=== PATIENT | female | born 1945 | race Asian ===

== ENCOUNTER 2022-09-01 14:40 | Inpatient (IN) | payer OTHER ==
[~2022-09-01] VITALS: Ht 157.5 cm; Wt 39.5 kg
[2022-09-01] MEDS ORDERED: IV NS 0.9% 500 ML BAG IV ONE (15:00)
--- NOTE | 2022-09-01 15:00 | NUR ---
[id number] C/O HYPOTENTION, BP 100/39 POST DIALYSIS. PLACED IN BED, AWAKE- NONVERBAL, BREATHING EVEN AND UNLABORED SATURATING 98%RA, BP- 93/45. MD AT BEDSIDE FOR EVAL.
[2022-09-01] MEDS ORDERED: DORZ10DR18 EACHEYE (15:14)
[2022-09-01] MEDS ORDERED: APIX2.5T PO (15:14)
[2022-09-01] MEDS ORDERED: FOLI0.8T23 PO (15:14)
[2022-09-01] MEDS ORDERED: NIFE60TA73 PO (15:14)
[2022-09-01] MEDS ORDERED: LOSA50TA39 PO (15:14)
[2022-09-01] MEDS ORDERED: ACET-868 PO (15:14)
[2022-09-01] MEDS ORDERED: PANT40TA49 PO (15:14)
[2022-09-01] MEDS ORDERED: ATOR10TA PO (15:14)
[2022-09-01] MEDS ORDERED: ANAS1TAB50 PO (15:14)
[2022-09-01] MEDS ORDERED: HYDR-4077 PO (15:14)
[2022-09-01] MEDS ORDERED: BISA10SU11 RC (15:14)
[2022-09-01] MEDS ORDERED: AMIN30LI2 PO (15:14)
[2022-09-01] MEDS ORDERED: ACET-2605 PO ×2 (15:14)
[2022-09-01] MEDS ORDERED: FOLI0.4T6 PO (15:14)
[2022-09-01] MEDS ORDERED: TYL2T PO (15:14)
[2022-09-01] MEDS ORDERED: MAGN400O6 PO (15:14)
[2022-09-01] MEDS ORDERED: LEVO100T9 PO (15:14)
[2022-09-01] MEDS ORDERED: SEVE0.8P3 PO (15:14)
[2022-09-01] MEDS ORDERED: LATA2.5D15 EACHEYE (15:14)
[2022-09-01] MEDS ORDERED: MINO2.5T PO (15:14)
--- NOTE | 2022-09-01 15:50 | NUR ---
MUSIC VIDEO DIRECTOR AT BEDSIDE
--- NOTE | 2022-09-01 15:52 | NUR ---
SWAB FOR COVID19 SENT TO LAB
[2022-09-01 16:26] LABS: BASOPHILS % (AUTO) 0.2 % (0.0-2.0); EOSINOPHILS % (AUTO) 0.6 % (0.0-6.0); HEMATOCRIT 36 % (33-45); HEMOGLOBIN 11.3 g/dL (11.5-14.8); LYMPHOCYTES # (AUTO) 0.4 K/uL (0.8-4.8); LYMPHOCYTES % (AUTO) 3.6 % (20.0-44.0); MEAN CORPUSCULAR HGB CONC 32 g/dl (31.0-36.0); MEAN CORPUSCULAR VOLUME 98 fL (82-100); MONOCYTES # (AUTO) 1.1 K/uL (0.1-1.30); NEUTROPHILS # (AUTO) 10.7 K/uL (1.8-8.9); NEUTROPHILS % (AUTO) 86.6 % (43.0-81.0); PLATELET COUNT (AUTO) 326 K/uL (150-450); RED BLOOD CELL COUNT(AUTO) 3.62 MIL/uL (4.0-5.2); WHITE BLOOD COUNT (AUTO) 12.3 K/uL (4.3-11.0)
[2022-09-01 16:45] LABS: CALCIUM, SERUM 8.6 mg/dL (8.5-10.1); CARBON DIOXIDE 28 mmol/L (21-32); CHLORIDE 97 mmol/L (98-107); CREATININE 2.8 mg/dL (0.6-1.3); GLUCOSE 143 mg/dL (74-106); POTASSIUM 3.8 mmol/L (3.5-5.1); SODIUM SERUM 132 mmol/L (136-145); UREA NITROGEN, BLOOD 29 mg/dL (7-18)
[2022-09-01 16:46] LABS: ALANINE AMINOTRANSFERASE 14 U/L (12-78); ALBUMIN 1.8 g/dL (3.4-5.0); ALKALINE PHOSPHATASE 228 U/L (46-116); ASPARTATE AMINOTRANSFERASE 36 U/L (15-37); BILIRUBIN,DIRECT 0.2 mg/dL (0.0-0.2); BILIRUBIN,TOTAL 0.5 mg/dL (0.2-1.0); TOTAL PROTEIN, SERUM 7.1 g/dL (6.4-8.2)
[2022-09-01] MEDS ORDERED: IV NS 0.9% 1,000 ML BAG IV ONE (17:30)
[2022-09-01] MEDS ORDERED: VANCOMYCIN 1 GM in IV D5W 250 ML IV ONE (17:30)
[2022-09-01] MEDS ORDERED: CEFEPIME 1 GM in IV D5W 50 ML IV ONE (17:30)
--- NOTE | 2022-09-01 18:08 | NUR ---
TROPONIN LEVEL 55 PER LAB. MADE AWARE.
--- NOTE | 2022-09-01 18:55 | NUR ---
IN AND OUT CATH. FOR URINE SAMPLE- NO URINE OUTPUT.
--- NOTE | 2022-09-01 19:37 | NUR ---
EPIC PAGED PER DR WILLIS
[2022-09-01] MEDS ORDERED: ONDANSETRON HCL/PF 4 MG/2 ML VIAL IVP PRN (20:00)
[2022-09-01] MEDS ORDERED: ACETAMINOPHEN 325 MG TABLET PO PRN (20:00)
--- NOTE | 2022-09-01 21:03 | NUR ---
BED 111-1
--- NOTE | 2022-09-01 21:19 | NUR ---
REPORT GIVEN TO ARLIN MARTIN ROOM 111-1 FOR SOL
--- NOTE | 2022-09-01 22:30 | NUR ---
VOLUNTEER MANAGER OPENING NOTES: RECEIVED PATIENT VIA GURNEY FROM ER, PLACED IN BED COMFORTABLY, BED IN LOW POSITION CALL LIGHTS WITHIN REACH, NO COMPLAIN OF PAIN AND DISCOMFORT AT THIS TIME, ON ROOM AIR SATURATING WELL, PATIENT ON TELE [id number] NO SOB WAS OBSERVED, SKIN ASSESSMENT DONE PICTURED AND DOCUMENTED, INVENTORIES DONE, DOCUMENTED, IV LINE AT RAC#20SL, WITH HD PORT AT RIGHT CHEST PERMACATH, NO BLEEDING WAS OBSERVED, PATIENT KEPT CLEAN AND DRY PLACE COMFORTABLY IN BED, ALL NEEDS MET WILL CONTINUE TO MONITOR.
[2022-09-02] VITALS: BP 137/62
[2022-09-02] MEDS ORDERED: MAGNESIUM HYDROXIDE 30 ML UDC PO PRN (01:30)
[2022-09-02] MEDS ORDERED: ACETAMINOPHEN 325 MG TABLET PO PRN (01:30)
[2022-09-02] MEDS ORDERED: BISACODYL SUPP (10 MG) 10 MG/SUPP.RECT SUPP.RECT RC PRN (01:30)
[2022-09-02 04:00] VITALS: BP 96/43
--- NOTE | 2022-09-02 06:11 | NUR ---
NUCLEAR PHYSICIAN CLOSING NOTES: PATIENT SLEEP IN BED COMFORTABLY, AROUSABLE TO VERBAL STIMULI, BED IN LOW POSITION CALL LIGHTS WITHIN REACH, NO COMPLAIN OF PAIN AND DISCOMFORT AT THIS TIME, ON ROOM AIR SATURATING WELL, NO SOB WAS OBSERVED, PATIENT ON TELE MONITOR- SR-85, KEPT CLEAN AND DRY ALL NEEDS MET WILL CONTINUE TO MONITOR.
[2022-09-02] MEDS ORDERED: VANCOMYCIN 500 MG in IV D5W 100 ML IV PRN (07:00)
[2022-09-02 07:25] LABS: BASOPHILS % (AUTO) 0.3 % (0.0-2.0); EOSINOPHILS % (AUTO) 1.5 % (0.0-6.0); HEMATOCRIT 30 % (33-45); HEMOGLOBIN 10.1 g/dL (11.5-14.8); LYMPHOCYTES # (AUTO) 0.4 K/uL (0.8-4.8); LYMPHOCYTES % (AUTO) 3.5 % (20.0-44.0); MEAN CORPUSCULAR HGB CONC 34 g/dl (31.0-36.0); MEAN CORPUSCULAR VOLUME 98 fL (82-100); MONOCYTES # (AUTO) 0.9 K/uL (0.1-1.30); MONOCYTES % (AUTO) 8.5 % (2.0-12.0); NEUTROPHILS # (AUTO) 8.9 K/uL (1.8-8.9); NEUTROPHILS % (AUTO) 86.2 % (43.0-81.0); PLATELET COUNT (AUTO) 315 K/uL (150-450); RED BLOOD CELL COUNT(AUTO) 3.07 MIL/uL (4.0-5.2); WHITE BLOOD COUNT (AUTO) 10.3 K/uL (4.3-11.0)
--- NOTE | 2022-09-02 07:45 | NUR ---
ALEX RN NOTES: PATIENT SLEEP IN BED COMFORTABLY, ABUSABLE TO VERBAL STIMULI,AND TACITLY BED IN LOW POSITION CALL LIGHTS WITHIN REACH, NO COMPLAIN OF PAIN AND DISCOMFORT AT THIS TIME, ON ROOM AIR , NO SOB WAS OBSERVED, PATIENT ON TELE MONITOR- SR-84, KEPT CLEAN AND DRY ALL NEEDS MET ,WILL CONTINUE TO MONITOR., RT AC HL INTACT AND FLUSHED WELL BED IN LOWEST AND LOCKED POSITION, SAFETY MEASURE IN PLACE
[2022-09-02 07:47] LABS: THYROID STIMULATING HORMONE 29.247 uIU/mL (0.358-3.74)
[2022-09-02] MEDS: LEVOTHYROXINE SODIUM 100 MCG TABLET PO SCH (08:07)
[2022-09-02] MEDS: PANTOPRAZOLE 40 MG TABLET.DR PO SCH (08:08)
[2022-09-02 08:31] LABS: ALANINE AMINOTRANSFERASE 9 U/L (12-78); ALBUMIN 1.7 g/dL (3.4-5.0); ALKALINE PHOSPHATASE 176 U/L (46-116); ASPARTATE AMINOTRANSFERASE 30 U/L (15-37); BILIRUBIN,TOTAL 0.5 mg/dL (0.2-1.0); CALCIUM, SERUM 8.6 mg/dL (8.5-10.1); CARBON DIOXIDE 24 mmol/L (21-32); CHLORIDE 97 mmol/L (98-107); CREATININE 3.3 mg/dL (0.6-1.3); GLUCOSE 107 mg/dL (74-106); MAGNESIUM 2.5 mg/dL (1.8-2.4); PHOSPHORUS 3.6 mg/dL (2.5-4.9); POTASSIUM 4.3 mmol/L (3.5-5.1); SODIUM SERUM 131 mmol/L (136-145); TOTAL PROTEIN, SERUM 6.7 g/dL (6.4-8.2); UREA NITROGEN, BLOOD 36 mg/dL (7-18)
[2022-09-02 08:34] VITALS: BP 106/53
[2022-09-02] MEDS: PROSOURCE / PROSTAT (PYXIS) 30 ML UDC PO SCH ×2 (08:58→16:37)
[2022-09-02] MEDS: DORZOLAMIDE OPTH 2% 10 ML BOTTLE EACHEYE SCH ×4 (08:59→21:23)
[2022-09-02] MEDS ORDERED: MINOXIDIL (2.5MG) 2.5 MG TABLET PO SCH (09:00)
[2022-09-02] MEDS ORDERED: PANTOPRAZOLE 40 MG VIAL IV SCH (09:00)
[2022-09-02] MEDS: VIT B CMPLX 3/FA/VIT C/BIOTIN 1 TAB TABLET PO SCH (09:00)
[2022-09-02] MEDS: SEVELAMER CARBONATE 800 MG POWD.PACK PO SCH ×3 (09:00→16:37)
[2022-09-02] MEDS ORDERED: HEPARIN SODIUM, PORCINE 5000 UNITS/1 ML VIAL SQ SCH (09:00)
[2022-09-02] MEDS: APIXABAN 2.5 MG TABLET PO SCH ×2 (09:02→16:38)
[2022-09-02] MEDS: FOLIC ACID 1 MG TABLET PO SCH (09:02)
--- NOTE | 2022-09-02 09:18 | NUR ---
PUBLIC WORKS MANAGER NOTE PATIENT ATB RISK FOR ASPIRATION, PER RAVI RN BRIM SHAPER OK SWALLOW EVAL, ORDER CARRIED OUT
[2022-09-02] MEDS: ANASTROZOLE 1 MG TABLET PO SCH (09:42)
[2022-09-02] MEDS: ACETAMINOPHEN ES 500 MG TABLET PO PRN (10:18)
--- NOTE | 2022-09-02 10:28 | NUR ---
WOUND CARE CONSULT: PT PRESENTS WITH LEFT LOWER BACK AND SACRAL UNSTAGEABLE PRESSURE ULCERS WELL LOWER EXTREMITY DRY WOUNDS, PRESENT ON ADMISSION. DR FRYE AND DR HURLEY CALLED FOR SURGICAL AND DPM CONSULTS. DISCUSSED SKIN PROTECTION WITH NURSING STAFF. MD IN AGREEMENT WITH PLAN OF CARE.
[2022-09-02] MEDS: THERAHONEY GEL 1.5 OZ TUBE TP SCH (10:30)
--- NOTE | 2022-09-02 10:31 | NUR ---
teletype installer note Tylenol po given as ordered for pain on body .will monitor
--- NOTE | 2022-09-02 10:32 | NUR ---
patricia rn note seen by sobia wound care nurse Tylenol po given for given general pain
[2022-09-02 12:00] VITALS: BP 106/52
--- NOTE | 2022-09-02 13:00 | NUR ---
television announcer note seen by dr Shah. updated patient condition
--- NOTE | 2022-09-02 14:36 | NUR ---
josselyn leonardo st at bedside for swallow eval Addendum: 09/02/22 at 1437 by RONEL MONTOYA RN per dr shelton olmedo
--- NOTE | 2022-09-02 15:54 | NUR ---
RN NOTE BILATERAL HEEL DRESSING CHANGED. NO PAIN OR DISCOMFORT REPORTED BY PT. Addendum: 09/02/22 at 1642 by RONEL MONTOYA RN SEEN BY FOOT DOCTOR STATED THAT WILL PLACE ORDER TX , WILL F\U
[2022-09-02 16:00] VITALS: BP 122/56
[2022-09-02] MEDS: CEFEPIME 1 GM in IV D5W 50 ML IV SCH (17:10)
--- NOTE | 2022-09-02 18:35 | NUR ---
CHEMICAL UNIT OPERATOR CLOSING NOTES: PATIENT SLEEP IN BED COMFORTABLY, AROUSABLE TO VERBAL STIMULI, ALL PO MEDICATION GIVEN IN CRASHED/ MIXED WITH APPLE SAUCE, CHOCKING PRECAUTIONS IMPLEMENTED. BED IN LOW POSITION CALL LIGHTS WITHIN REACH, NO COMPLAIN OF PAIN AND DISCOMFORT AT THIS TIME, SATURATION 100% ON ROOM AIR, NO SOB WAS OBSERVED, PATIENT ON TELE MONITOR- SR-88, KEPT CLEAN AND DRY ALL NEEDS MET WILL CONTINUE TO MONITOR.
--- NOTE | 2022-09-02 19:32 | NUR ---
INSOLE REINFORCER OPENING NOTES; RECEIVED PATIENT IN BED SLEEPING BUT AROUSABLE TO VERBAL STIMULI,KARLIE WELL ON RM AIR SATTING 98%,NO SIGN SOB/DISTRESS NOTED,NO SIGN OF PAIN/DISCOMFORT AT THIS TIME,IV ACCESS ON RAC 20G SL,PATENT AND INTACT,SAFETY MEASURE IN PLACE.CALL LIGHT WITHIN REACH,WILL CONTINUE TO MONITOR.
[2022-09-02] MEDS: ATORVASTATIN 10 MG TABLET PO SCH (21:23)
[2022-09-02] MEDS: LATANOPROST EYE DROP 0.005% 2.5 ML BOTTLE EACHEYE SCH (21:27)
--- NOTE | 2022-09-02 21:32 | NUR ---
RN NOTES; TRUSOP 2% SOLN OPH,WAS NOT GIVEN, MISTAKE WHEN I SCAN.
[2022-09-02] MEDS ORDERED: SILVER NITRATE APPLICATOR 1 EA BOX TP SCH (22:00)
[2022-09-02] MEDS ORDERED: LIDOCAINE 1%-EPI 1:100,000 20 ML VIAL TP ONE (22:00)
--- NOTE | 2022-09-03 05:24 | NUR ---
PUBLIC MESSAGE SERVICE SUPERVISOR CLOSING NOTES; PATIENT IN BED SLEEPING BUT AROUSABLE TO VERBAL STIMULI,KARLIE WELL ON RM AIR SATTING 97.6%,NO SIGN SOB/DISTRESS NOTED,NO SIGN OF PAIN/DISCOMFORT DURING SHIFT,DUE MEDS GIVEN ORDER,ALL NEEDS ATTENDED,IV ACCESS ON RAC 20G SL,PATENT AND INTACT,SAFETY MEASURE IN PLACE.CALL LIGHT WITHIN REACH,WILL ENDORSED TO NEXT SHIFT.
[2022-09-03 06:20] LABS: BASOPHILS % (AUTO) 0.3 % (0.0-2.0); EOSINOPHILS % (AUTO) 1.2 % (0.0-6.0); HEMATOCRIT 32 % (33-45); HEMOGLOBIN 10.5 g/dL (11.5-14.8); LYMPHOCYTES # (AUTO) 0.4 K/uL (0.8-4.8); LYMPHOCYTES % (AUTO) 5.1 % (20.0-44.0); MEAN CORPUSCULAR HGB CONC 33 g/dl (31.0-36.0); MEAN CORPUSCULAR VOLUME 98 fL (82-100); MONOCYTES # (AUTO) 0.7 K/uL (0.1-1.30); MONOCYTES % (AUTO) 8.8 % (2.0-12.0); NEUTROPHILS # (AUTO) 7.2 K/uL (1.8-8.9); NEUTROPHILS % (AUTO) 84.6 % (43.0-81.0); PLATELET COUNT (AUTO) 330 K/uL (150-450); RED BLOOD CELL COUNT(AUTO) 3.28 MIL/uL (4.0-5.2); WHITE BLOOD COUNT (AUTO) 8.5 K/uL (4.3-11.0)
--- NOTE | 2022-09-03 07:10 | NUR ---
ALEX RN NOTES: PATIENT SLEEP IN BED COMFORTABLY, ABUSABLE TO VERBAL STIMULI,AND TACITLY BED IN LOW POSITION CALL LIGHTS WITHIN REACH, NO COMPLAIN OF PAIN AND DISCOMFORT AT THIS TIME, ON ROOM AIR , NO SOB WAS OBSERVED, NOTED WITH RIGHT CHEST HD CATH.KEPT CLEAN AND DRY ALL NEEDS MET ,WILL CONTINUE TO MONITOR., RT AC SALINE LOCK INTACT AND FLUSHED WELL BED IN LOWEST AND LOCKED POSITION, SAFETY MEASURE IN PLACE
[2022-09-03 07:22] LABS: ALANINE AMINOTRANSFERASE 14 U/L (12-78); ALBUMIN 1.8 g/dL (3.4-5.0); ALKALINE PHOSPHATASE 171 U/L (46-116); ASPARTATE AMINOTRANSFERASE 26 U/L (15-37); BILIRUBIN,TOTAL 0.6 mg/dL (0.2-1.0); CALCIUM, SERUM 10.6 mg/dL (8.5-10.1); CARBON DIOXIDE 24 mmol/L (21-32); CHLORIDE 108 mmol/L (98-107); CREATININE 2.5 mg/dL (0.6-1.3); GLUCOSE 82 mg/dL (74-106); MAGNESIUM 2.5 mg/dL (1.8-2.4); PHOSPHORUS 3.1 mg/dL (2.5-4.9); POTASSIUM 4.1 mmol/L (3.5-5.1); SODIUM SERUM 140 mmol/L (136-145); TOTAL PROTEIN, SERUM 7.3 g/dL (6.4-8.2); UREA NITROGEN, BLOOD 21 mg/dL (7-18)
[2022-09-03] MEDS: PANTOPRAZOLE 40 MG TABLET.DR PO SCH (07:36)
[2022-09-03] MEDS: LEVOTHYROXINE SODIUM 100 MCG TABLET PO SCH (07:36)
[2022-09-03 08:00] VITALS: BP 142/53
[2022-09-03] MEDS: ACETAMINOPHEN ES 500 MG TABLET PO PRN ×2 (08:19→16:50)
[2022-09-03] MEDS: SEVELAMER CARBONATE 800 MG POWD.PACK PO SCH ×3 (08:19→16:33)
[2022-09-03] MEDS: FOLIC ACID 1 MG TABLET PO SCH (08:19)
[2022-09-03] MEDS: VIT B CMPLX 3/FA/VIT C/BIOTIN 1 TAB TABLET PO SCH (08:19)
[2022-09-03] MEDS: APIXABAN 2.5 MG TABLET PO SCH ×2 (08:21→16:31)
[2022-09-03] MEDS: ANASTROZOLE 1 MG TABLET PO SCH (08:27)
[2022-09-03] MEDS: PROSOURCE / PROSTAT (PYXIS) 30 ML UDC PO SCH ×3 (08:27→16:36)
[2022-09-03] MEDS: THERAHONEY GEL 1.5 OZ TUBE TP SCH (08:30)
[2022-09-03] MEDS: NEPRO VAN 237 ML CAN PO SCH ×2 (12:37→16:32)
[2022-09-03] MEDS: DORZOLAMIDE OPTH 2% 10 ML BOTTLE EACHEYE SCH ×2 (13:05→16:32)
[2022-09-03 16:00] VITALS: BP 102/36
--- NOTE | 2022-09-03 16:00 | NUR ---
RN NOTES: PT DONE DIALYSIS WITHOUT COMPLICATION, 2 LITER OUT, WILL MONITOR
[2022-09-03] MEDS: CEFEPIME 1 GM in IV D5W 50 ML IV SCH (17:13)
[2022-09-03] MEDS: VANCOMYCIN 500 MG in IV NS 0.9% 100 ML IV PRN (18:49)
--- NOTE | 2022-09-03 19:30 | NUR ---
MS1 RN NOTES RECEIVED LAYING ON BED,ON RIGHT SIDE POSITION,A/O X1,MOANS ALL THE TIME PER REPORT,NON VERBAL. AT BEDSIDE.S/P HD TODAY 2L OUT.SALINE LOCK RIGHT AC INTACT AND PATENT.WITH RIGHT UPPER CHEST CATH FOR HD TREATMENT.WITH SACRAL WOUND S/P INCISION AND DRAINAGE TODAY,DRESSING INTACT AND DRY.WILL REPOSITION PER PROTOCOL,CALL LIGHT IN REACH,NEEDS ANTICIPATED.
--- NOTE | 2022-09-03 19:37 | NUR ---
RETAIL COORDINATOR CLOSING NOTES: PATIENT SLEEP IN BED COMFORTABLY, AROUSABLE TO VERBAL STIMULI, ALL PO MEDICATION GIVEN IN CRASHED/ MIXED WITH APPLE SAUCE, ASPIRATION PRECAUTIONS IMPLEMENTED. BED IN LOW POSITION CALL LIGHTS WITHIN REACH, NO COMPLAIN OF PAIN AND DISCOMFORT AT THIS TIME, SATURATION 100% ON ROOM AIR, NO SOB WAS OBSERVED, PT DID NOT EAT WITH NURSES BUT WAS ABLE TO FEED PT LUNCH AND DINNER SHE ATE IT ALL., KEPT CLEAN AND DRY ALL NEEDS MET .ENDORSED TO SNAILER RN FOR SOL
[2022-09-03] MEDS: LATANOPROST EYE DROP 0.005% 2.5 ML BOTTLE EACHEYE SCH (21:51)
[2022-09-03] MEDS: ATORVASTATIN 10 MG TABLET PO SCH (21:51)
[2022-09-04] MEDS: ACETAMINOPHEN ES 500 MG TABLET PO PRN (01:20)
--- NOTE | 2022-09-04 01:20 | NUR ---
MS1 RN NOTES MOANS A LOT,IN PAIN WITH FACIAL GRIMACE NOTED,TYLENOL ES 500MG,1 TAB CRUSHED AND GIVEN PO ORDERED.NEGATIVE FOR ASPIRATION.
[2022-09-04 04:00] VITALS: BP 140/56
--- NOTE | 2022-09-04 06:32 | NUR ---
MS RN NOTES ON BED,SLEPT WITH INTERVALS,MOANS INTERMITTENTLY,MANAGE WITH TYLENOL ES 500MG PO.REPOSITION PER PROTOCOL,DUE MEDS ADMINISTERED CRUSHED WITH THICKENER,TAKEN WELL.NO ASPIRATION NOTED.AFEBRILE.IN NO ACUTE DISTRESS.
[2022-09-04 06:51] LABS: BASOPHILS % (AUTO) 0.2 % (0.0-2.0); HEMATOCRIT 33 % (33-45); HEMOGLOBIN 10.5 g/dL (11.5-14.8); LYMPHOCYTES # (AUTO) 0.6 K/uL (0.8-4.8); MEAN CORPUSCULAR HGB CONC 32 g/dl (31.0-36.0); MEAN CORPUSCULAR VOLUME 98 fL (82-100); MONOCYTES # (AUTO) 1.3 K/uL (0.1-1.30); MONOCYTES % (AUTO) 10.5 % (2.0-12.0); NEUTROPHILS # (AUTO) 10.1 K/uL (1.8-8.9); NEUTROPHILS % (AUTO) 83.3 % (43.0-81.0); PLATELET COUNT (AUTO) 311 K/uL (150-450); RED BLOOD CELL COUNT(AUTO) 3.33 MIL/uL (4.0-5.2); WHITE BLOOD COUNT (AUTO) 12.2 K/uL (4.3-11.0)
--- NOTE | 2022-09-04 07:10 | NUR ---
HARDBOARD COATING MACHINE OPERATOR OPENING NOTES Recicved pt awake in bed. Responsive when spoken to in Tagalog. Pt moans but when asked if there is any pain or discomfort no complaints of pain or discomfort at this time. Respirations are equal and unlabored with no SOB. Pt is in RA and tolerating it well. IV Heplock running TKO. HOB elevated to 30-45 degrees. Siderails up at all times. Call light within reach,. Will anticipate needs.
[2022-09-04 07:53] LABS: ALANINE AMINOTRANSFERASE 13 U/L (12-78); ALBUMIN 1.8 g/dL (3.4-5.0); ALKALINE PHOSPHATASE 212 U/L (46-116); ASPARTATE AMINOTRANSFERASE 29 U/L (15-37); BILIRUBIN,TOTAL 0.6 mg/dL (0.2-1.0); CALCIUM, SERUM 9.2 mg/dL (8.5-10.1); CARBON DIOXIDE 25 mmol/L (21-32); CHLORIDE 98 mmol/L (98-107); CREATININE 2.6 mg/dL (0.6-1.3); GLUCOSE 82 mg/dL (74-106); MAGNESIUM 2.3 mg/dL (1.8-2.4); PHOSPHORUS 1.9 mg/dL (2.5-4.9); POTASSIUM 4.2 mmol/L (3.5-5.1); SODIUM SERUM 131 mmol/L (136-145); TOTAL PROTEIN, SERUM 7.3 g/dL (6.4-8.2); UREA NITROGEN, BLOOD 38 mg/dL (7-18)
[2022-09-04] MEDS: PANTOPRAZOLE 40 MG TABLET.DR PO SCH (08:24)
[2022-09-04] MEDS: VIT B CMPLX 3/FA/VIT C/BIOTIN 1 TAB TABLET PO SCH (08:24)
[2022-09-04] MEDS: FOLIC ACID 1 MG TABLET PO SCH (08:25)
[2022-09-04] MEDS: LEVOTHYROXINE SODIUM 100 MCG TABLET PO SCH (08:25)
[2022-09-04] MEDS: APIXABAN 2.5 MG TABLET PO SCH ×2 (08:26→17:00)
[2022-09-04] MEDS: ANASTROZOLE 1 MG TABLET PO SCH (08:30)
[2022-09-04] MEDS: SEVELAMER CARBONATE 800 MG POWD.PACK PO SCH ×3 (08:30→17:00)
[2022-09-04] MEDS: NEPRO VAN 237 ML CAN PO SCH ×3 (08:31→17:00)
[2022-09-04] MEDS: PROSOURCE / PROSTAT (PYXIS) 30 ML UDC PO SCH ×2 (08:32→17:00)
[2022-09-04] MEDS: DORZOLAMIDE OPTH 2% 10 ML BOTTLE EACHEYE SCH ×3 (09:33→17:00)
[2022-09-04] MEDS: THERAHONEY GEL 1.5 OZ TUBE TP SCH (09:33)
[2022-09-04] MEDS: DAKINS QUARTER STRENGTH (0.125%) 480 ML BOTTLE TOP SCH (09:34)
--- NOTE | 2022-09-04 11:47 | NUR ---
VICE PRESIDENT RISK MANAGEMENT NOTES Dr. Shah made aware that pt phos is 1.9 with new order for neutro phos 2 packet x1 now. Noted and carried out,.
[2022-09-04 12:00] VITALS: BP 152/66
[2022-09-04] MEDS ORDERED: NEUTRA PHOS 1 POWD.PACKET PO ONE (12:00)
--- NOTE | 2022-09-04 17:00 | NUR ---
MEDICAL RECORD CLERK NOTES Routine meds held due at 1700 pt on HD.
--- NOTE | 2022-09-04 17:22 | NUR ---
LMFT NOTES PT STARTED ON HD.
--- NOTE | 2022-09-04 18:30 | NUR ---
CARE SERVICES MANAGER CLOSING NOTES Pt is still currently on HD and tolerating it well. No signs of pain or discomfort at this time. Respirations are equal and unlabored with no SOB. Pt is on RA and tolerating it well. IV access on RAC patent and intact. HOB elevated to 30-45 degrees. Siderails up at all times. Call light within reach. Will endorse to oncoming shift.
--- NOTE | 2022-09-04 18:57 | NUR ---
LEGAL ADMINISTRATOR NOTES Pts Jayson at bedside and discussed taht suggests PEG tub placement due to poor oral intake. Jayson stated he agrees to the PEG tube and would like it. made aware. Awaiting response.
--- NOTE | 2022-09-04 19:05 | NUR ---
RN NOTES: RECEIVED AWAKE ON BED, HIGH FOWLERS POSITION, PRESENT AT BED SIDE, DIALYSIS IS ON GOING VIA PORT A CATH ON THE RIGHT CHEST WALL, DRESSING IS DRY AND INTACT, A/O TO SELF ONLY, KYRGYZ SPEAKING, RESPOND YES OR NO, RARELY COMMUNICATE VERBALLY,ON ROOM AIR, SPO2-97%,NON LABORED BREATHING, NO SOB, EDEMA ON BUE AND BLE, SHE HAS SACRAL REDNESS PER ENDORSEMENT, FOR LABS IN THE MORNING,REENA ML INTACT. FOR POSSIBLE EGD WITH PEG INSERTION, STILL AWAITING FOR CONFIRMATION, TO OBTAIN CONSENT. ADDED NOTES: PER MORNING ENDORSEMENT HE IS FOR PEG INSERTION TOMORROW AT 11AM,TO GET CONSENT FROM .
[2022-09-04 20:00] VITALS: BP 156/70
--- NOTE | 2022-09-04 20:28 | NUR ---
RN NOTES: AROUND 1933 DONNA-DIALYSIS NURSE REQUEST TO PULL OUT NS FROM [facility] TO USE FOR PATIENT DIALYSIS-TAKEN BY RN FROM [facility] AND GIVEN TO DIALYSIS NURSE. Addendum: 09/04/22 at 2028 by CHRISTOPHER BURGESS RN ADDED NOTES: RN NOTES: 1936PM DIALYSIS COMPLETED, OUTPUT-2 LITERS NOAH-150/70 ME-94 PATIENT IS STABLE DUE FOR ANOTHER SESSION TOMORROW THURSDAY.
[2022-09-04] MEDS: CEFEPIME 1 GM in IV D5W 50 ML IV SCH (20:34)
--- NOTE | 2022-09-04 20:35 | NUR ---
RN NOTES: PER ENDORSEMENT OF MORNING SHIFT TO GIVE MAXIPINE DOSE AFTER DIALYSIS COMPLETED, GIVEN AT 2034.
--- NOTE | 2022-09-04 21:58 | NUR ---
RN NOTES: AT 2118-SHE IS SCHEDULE FOR EGD WITH PEG INSERTION UNDER DR. VALVERDE TOMORROW AT 1100, NPO AT 12 MN. - IS AWARE OF THE PROCEDURE TO BE DONE TOMORROW, EXPLAINED TO HIM BY 2 RN, CONSENT SIGNED FOR ESOPHAGOGASTRODUODENOSCOPY WITH PERCUTANEOUS ENDOSCOPIC GASTROSTOMY PLACEMENT, HE AGREE, CONSENT SIGNED, BT SIGNED AND ANESTHESIA SIGNED.
[2022-09-04] MEDS: LATANOPROST EYE DROP 0.005% 2.5 ML BOTTLE EACHEYE SCH (22:03)
[2022-09-04] MEDS: ATORVASTATIN 10 MG TABLET PO SCH (22:03)
--- NOTE | 2022-09-05 02:10 | NUR ---
RN NOTES: AWAKE, ASSISTED TO BED SIDE KARTHIK JMIENEZ VERY LITTLE, IVF ONGOING, REMOVE SOFT RESTRAINT IN BETWEEN, COOPERATIVE TO CARE, NOT PULLING OUT HER IV CANNULA. Addendum: 09/05/22 at 0213 by CHRISTOPHER BURGESS RN ADDED NOTES: WRONG ENTRY OF NOTES THIS IS FOR 104
--- NOTE | 2022-09-05 02:17 | NUR ---
RN NOTES: -MORNING CARE DONE.SPONGE BATH RENDERED BODY ASSESSMENT DONE: DRESSING RIGHT FOOT, LEFT FOOT AND SACRUM DONE, PICTURES TAKEN
[2022-09-05] MEDS: ACETAMINOPHEN 325 MG TABLET PO PRN ×2 (03:46→21:29)
--- NOTE | 2022-09-05 03:46 | NUR ---
RN NOTES: AFTER MORNING CARE, NOTED WITH FACIAL GRIMACE DURING REPOSITIONING, OFF LOADING DONE, PRN FOR PAIN GIVEN TEMP-100.5. Addendum: 09/05/22 at 0542 by CHRISTOPHER BURGESS RN ADDED NOTES: NEW IV LINE INSERTED ON THE LEFT WRIST G#22, IVF ON KVO
[2022-09-05 04:00] VITALS: BP 100/76
--- NOTE | 2022-09-05 06:22 | NUR ---
RN NOTES: SWEATING, TEMP-98, BS CHECKED-157, ON NPO, CONSENT FOR PEG TUBE READY, PRE-OP CHECKLIST STARTED, FOR SERIAL DEBRIDEMENT OF SACRUM AREA,LABS DONE IN THE MORNING, AWAKE MAKING COOING SOUND, OFF LOADING DONE, REPOSITIONED, NON LABORED BREATHING. ENDORSED FOR CONTINUITY OF CARE.
[2022-09-05 07:18] LABS: BASOPHILS % (AUTO) 0.3 % (0.0-2.0); EOSINOPHILS % (AUTO) 0.6 % (0.0-6.0); HEMATOCRIT 36 % (33-45); HEMOGLOBIN 11.6 g/dL (11.5-14.8); LYMPHOCYTES # (AUTO) 0.9 K/uL (0.8-4.8); LYMPHOCYTES % (AUTO) 4.9 % (20.0-44.0); MEAN CORPUSCULAR HGB CONC 32 g/dl (31.0-36.0); MEAN CORPUSCULAR VOLUME 100 fL (82-100); MONOCYTES # (AUTO) 1.8 K/uL (0.1-1.30); NEUTROPHILS # (AUTO) 15.1 K/uL (1.8-8.9); NEUTROPHILS % (AUTO) 84.2 % (43.0-81.0); PLATELET COUNT (AUTO) 287 K/uL (150-450); RED BLOOD CELL COUNT(AUTO) 3.66 MIL/uL (4.0-5.2); WHITE BLOOD COUNT (AUTO) 17.9 K/uL (4.3-11.0)
--- NOTE | 2022-09-05 07:21 | NUR ---
RN OPENING NOTES Received pt awake in bed. Responsive when spoken to in Tagalog. Pt moans but when asked if there is any pain or discomfort no complaints of pain or discomfort at this time. Respirations are equal and unlabored with no SOB. Pt is in RA and tolerating it well. PIV ON RIGHT FA AND LEFT WRIST NOTED PATENT AND INTACT. RIGHT UPPER CHEST HD CATH DRESSING NOTED C/D/I. HOB elevated to 30-45 degrees. ON NPO STATUS. Siderails up at all times. Call light within reach. SAFETY PRECAUTION IN PLACED. PLAN OF CARE CONTINUE.
[2022-09-05] MEDS: LEVOTHYROXINE SODIUM 100 MCG TABLET PO SCH ×2 (07:30→07:51)
[2022-09-05] MEDS: PANTOPRAZOLE 40 MG TABLET.DR PO SCH ×2 (07:30→07:51)
[2022-09-05] MEDS: NEPRO VAN 237 ML CAN PO SCH ×4 (07:52→16:09)
[2022-09-05] MEDS: APIXABAN 2.5 MG TABLET PO SCH ×2 (08:05→16:09)
[2022-09-05] MEDS: DORZOLAMIDE OPTH 2% 10 ML BOTTLE EACHEYE SCH ×3 (08:05→16:09)
[2022-09-05] MEDS: THERAHONEY GEL 1.5 OZ TUBE TP SCH (08:05)
[2022-09-05] MEDS: DAKINS QUARTER STRENGTH (0.125%) 480 ML BOTTLE TOP SCH (08:05)
[2022-09-05] MEDS: FOLIC ACID 1 MG TABLET PO SCH (08:20)
[2022-09-05] MEDS: SEVELAMER CARBONATE 800 MG POWD.PACK PO SCH ×3 (08:20→16:16)
[2022-09-05] MEDS: ANASTROZOLE 1 MG TABLET PO SCH (08:20)
[2022-09-05] MEDS: PROSOURCE / PROSTAT (PYXIS) 30 ML UDC PO SCH ×2 (08:20→16:09)
[2022-09-05] MEDS: VIT B CMPLX 3/FA/VIT C/BIOTIN 1 TAB TABLET PO SCH (08:20)
[2022-09-05 08:32] LABS: CALCIUM, SERUM 10.3 mg/dL (8.5-10.1); CARBON DIOXIDE 24 mmol/L (21-32); CHLORIDE 95 mmol/L (98-107); CREATININE 2.5 mg/dL (0.6-1.3); GLUCOSE 160 mg/dL (74-106); MAGNESIUM 2.6 mg/dL (1.8-2.4); PHOSPHORUS 1.4 mg/dL (2.5-4.9); POTASSIUM 4.6 mmol/L (3.5-5.1); SODIUM SERUM 129 mmol/L (136-145); UREA NITROGEN, BLOOD 38 mg/dL (7-18)
--- NOTE | 2022-09-05 11:00 | NUR ---
NOTED SODIUM 129, PHOSPHATE 1.4 AND MAGNESIUM 2.6, DR. SUAREZ NOTIFIED, WITH NEW ORDER NS @100ML/HR, SODIUM PHOSPHATE, CALLED PHARMACY FOR SODIUM PHOSPHATE CONCENTRATION, NOTED AND CARRIED OUT. PLAN OF CARE CONTINUE.
--- NOTE | 2022-09-05 11:15 | NUR ---
CALLED OR DEPARTMENT, SPOKE TO ASAEL RN TO FOLLOW UP PATIENT'S SURGERY TIME, PER ASAEL THEY WERE INFORMED BY DR. VALVERDE THAT SURGERY IS CANCELLED, DR. JENNINGS NOTIFY, AT THE BEDSIDE. ASKED DR. JENNINGS IF WE CAN RESUME PO INTAKE. AWAITING ORDERS. PLAN OF CARE CONTINUE.
[2022-09-05 12:00] VITALS: BP 109/55
[2022-09-05] MEDS ORDERED: IV NS 0.9% 1,000 ML IV ONE (12:00)
--- NOTE | 2022-09-05 12:17 | NUR ---
RECEIVED ORDER FOR DR. JENNINGS THAT PATIENT CAN RESUME PO INTAKE. NOTED AND CARRIED OUT.
[2022-09-05] MEDS ORDERED: Sodium Phosphate 30 MMOL in IV NS 0.9% 250 ML IV SCH (14:00)
--- NOTE | 2022-09-05 14:25 | NUR ---
RECEIVED NEW ORDER FROM DR. JENNINGS TO HOLD ELIQUIS DUE TO PATIENT IS FOR PEG TUBE PLACEMENT, NOTED AND CARRIED OUT. HELD MORNING ELIQUIS. WILL ENDORSE TO NEXT SHIFT RN. PLAN OF CARE CONTINUE.
[2022-09-05 16:52] VITALS: BP 120/52
[2022-09-05] MEDS: CEFEPIME 1 GM in IV D5W 50 ML IV SCH (17:28)
--- NOTE | 2022-09-05 18:09 | NUR ---
RN CLOSING NOTES PATIENT IN BED AWAKE, AT THE BEDSIDE, Responsive when spoken to in Tagalog. Pt moans but when asked if there is any pain or discomfort no complaints of pain or discomfort at this time. Respirations are equal and unlabored with no SOB. Pt is in RA and tolerating it well. PIV ON RIGHT AC AND LEFT WRIST NOTED PATENT AND INTACT, FLUSHES WELL, WITH IV NS @100ML RUNNING AND SODIUM PHOSPHATE RUNNING, TOLERATING WELL. RIGHT UPPER CHEST HD CATH DRESSING NOTED C/D/I. HOB elevated to 30-45 degrees. PER EKTA DIALYSIS NURSE, THEY WILL DO THE HEMODIALYIS LATER. Siderails up at all times. Call light within reach. SAFETY PRECAUTION IN PLACED. WILL ENDORSE TO NIGHT NURSE FOR SOL.
--- NOTE | 2022-09-05 19:30 | NUR ---
MS RN NOTES RECEIVED RESIDENT IN BED, AWAKE AND RESPONSIVE TO TACTILE STIMULI, NOT VERBALLY RESPONSIVE. PT ON RA, NOT IN ACUTE DISTRESS. NO SOB. NO S/S OF PAIN NOTED. IVF SODIUM PHOSPHATE INFUSING 43.33ML/HR ON LFA 22G, NS INFUSING 100ML/HR ON RAC 18G. NO S/S OF INFILTRATION NOTED. R CHEST WALL HEMOCATH INTACT, SITE IS CLEAN AND DRY. WOUND DRESSING ON B HEEL AND SACRUM I/C/D. HEELS FLOATED ON PILLOWS. TURN AND REPOS, KEPT DRY AND CLEAN. SR UP, CALL LIGHT WITHIN REACH, BED LOCKED AND IN LOWEST POSITION. WILL CONT TO MONITOR. VS STABLE.
[2022-09-05 20:00] VITALS: BP 120/52
--- NOTE | 2022-09-05 20:57 | NUR ---
MS RN NOTE SODIUM PHOSPHATE INFUSION COMPLETED. NO S/S OF INFILTRATION. IVF NS INFUSING 100ML/HR. WELL KARLIE
--- NOTE | 2022-09-05 21:20 | NUR ---
MS RN NOTES PT NOTED WITH 99.3 LOW GRADE FEVER. COOLING MEASURES APPLIED, PRN ACETAMINOPHEN GIVEN ORDERED. WILL REASS PT.
[2022-09-05] MEDS: ATORVASTATIN 10 MG TABLET PO SCH (21:29)
[2022-09-05] MEDS: LATANOPROST EYE DROP 0.005% 2.5 ML BOTTLE EACHEYE SCH (21:31)
--- NOTE | 2022-09-05 22:00 | NUR ---
MS RN NOTE DIALYSIS STARTED. VS STABLE. WILL CONT TO MONITOR PT.
[2022-09-06 04:00] VITALS: BP 135/52
[2022-09-06 05:50] LABS: BASOPHILS % (AUTO) 0.2 % (0.0-2.0); EOSINOPHILS % (AUTO) 1.9 % (0.0-6.0); HEMATOCRIT 34 % (33-45); LYMPHOCYTES # (AUTO) 0.6 K/uL (0.8-4.8); LYMPHOCYTES % (AUTO) 4.8 % (20.0-44.0); MEAN CORPUSCULAR HGB CONC 32 g/dl (31.0-36.0); MEAN CORPUSCULAR VOLUME 99 fL (82-100); MONOCYTES # (AUTO) 1.2 K/uL (0.1-1.30); MONOCYTES % (AUTO) 9.9 % (2.0-12.0); NEUTROPHILS # (AUTO) 10.4 K/uL (1.8-8.9); NEUTROPHILS % (AUTO) 83.2 % (43.0-81.0); PLATELET COUNT (AUTO) 306 K/uL (150-450); RED BLOOD CELL COUNT(AUTO) 3.46 MIL/uL (4.0-5.2); WHITE BLOOD COUNT (AUTO) 12.5 K/uL (4.3-11.0)
[2022-09-06 06:03] LABS: ALANINE AMINOTRANSFERASE 7 U/L (12-78); ALBUMIN 1.7 g/dL (3.4-5.0); ALKALINE PHOSPHATASE 229 U/L (46-116); ASPARTATE AMINOTRANSFERASE 17 U/L (15-37); BILIRUBIN,TOTAL 0.4 mg/dL (0.2-1.0); CALCIUM, SERUM 9.2 mg/dL (8.5-10.1); CARBON DIOXIDE 24 mmol/L (21-32); CHLORIDE 103 mmol/L (98-107); CREATININE 2.1 mg/dL (0.6-1.3); GLUCOSE 123 mg/dL (74-106); MAGNESIUM 2.3 mg/dL (1.8-2.4); PHOSPHORUS 3.2 mg/dL (2.5-4.9); SODIUM SERUM 135 mmol/L (136-145); TOTAL PROTEIN, SERUM 7.2 g/dL (6.4-8.2); UREA NITROGEN, BLOOD 27 mg/dL (7-18)
--- NOTE | 2022-09-06 06:18 | NUR ---
MS RN CLOSING NOTES PT IN BED, ASLEEP, EASILY AWAKEN. NO S/S OF PAIN/DISCOMFORT NOTED. ON RA, NO SOB, NO ACUTE DISTRESS NOTED. LFA #22 AND RAC #18 INTACT, DRY AND PATENT. R CHEST HEMO CATH CLEAN AND DRY. ALL NEEDS ANTICIPATED AND MET. TURN/REPOS PT Q2H/ NEEDED. KEPT PT CLEAN AND DRY AT ALL TIMES. SAFETY MEASURES IMPLEMENTED: BED LOCKED AND IN LOWEST POSITION. WILL ENDORSE TO AM NURSE.
--- NOTE | 2022-09-06 07:20 | NUR ---
ms rn received on bed, awake,alert,oriented x1-2, no distress noted, respiratins even and unlabored,no sob noted, lungs are clear,abdomen soft,positive bowel sounds,denies pain at this time, will monitor patient's condition, all needs attended.
[2022-09-06] MEDS: APIXABAN 2.5 MG TABLET PO SCH ×2 (08:33→16:41)
[2022-09-06] MEDS: SEVELAMER CARBONATE 800 MG POWD.PACK PO SCH ×3 (08:38→17:35)
[2022-09-06] MEDS: FOLIC ACID 1 MG TABLET PO SCH (08:39)
[2022-09-06] MEDS: PANTOPRAZOLE 40 MG TABLET.DR PO SCH (08:39)
[2022-09-06] MEDS: VIT B CMPLX 3/FA/VIT C/BIOTIN 1 TAB TABLET PO SCH (08:39)
[2022-09-06] MEDS: ANASTROZOLE 1 MG TABLET PO SCH (08:39)
[2022-09-06] MEDS: LEVOTHYROXINE SODIUM 100 MCG TABLET PO SCH (08:39)
[2022-09-06] MEDS: DORZOLAMIDE OPTH 2% 10 ML BOTTLE EACHEYE SCH ×3 (08:42→18:36)
[2022-09-06] MEDS: THERAHONEY GEL 1.5 OZ TUBE TP SCH (08:43)
[2022-09-06] MEDS: NEPRO VAN 237 ML CAN PO SCH ×3 (08:45→18:36)
[2022-09-06] MEDS: PROSOURCE / PROSTAT (PYXIS) 30 ML UDC PO SCH ×2 (08:45→17:35)
--- NOTE | 2022-09-06 08:50 | NUR ---
ms katz breakfast served,due meds given,tolerated well.
[2022-09-06] MEDS: DAKINS QUARTER STRENGTH (0.125%) 480 ML BOTTLE TOP SCH (08:57)
--- NOTE | 2022-09-06 11:00 | NUR ---
ms rn am care done by seat cover installer, dressing to sacrum change, patient on bed, no distress noted.
[2022-09-06 12:00] VITALS: BP 145/60
[2022-09-06] MEDS: CEFEPIME 1 GM in IV D5W 50 ML IV SCH (17:35)
--- NOTE | 2022-09-06 19:30 | NUR ---
PT IN BED, ASLEEP, WITH RELATIVE AT BEDSIDE. EASILY AWAKEN. NO S/S OF PAIN/DISCOMFORT NOTED. ON RA, NO SOB AT THIS TIME. NO ACUTE DISTRESS NOTED. LFA #22 AND RAC #18, R CHEST HEMO CATH IN PLACE. SAFETY MEASURES IN PLACE. WILL CONTINUE PLAN OF CARE.
[2022-09-06 20:00] VITALS: BP 158/65
[2022-09-06] MEDS: ACETAMINOPHEN ES 500 MG TABLET PO PRN (20:19)
--- NOTE | 2022-09-06 20:27 | NUR ---
BP 158/65. HD ONGOING. CRUSHED TYLENOL ES 1000MG PO GIVEN. PT TOLERATING PROCEDURE WELL. PROVIDED 2 0.9 NS 1L REQUESTED BY HD NURSE. WILL CONTINUE TO MONITOR.
[2022-09-06] MEDS: LATANOPROST EYE DROP 0.005% 2.5 ML BOTTLE EACHEYE SCH (21:10)
[2022-09-06] MEDS: ATORVASTATIN 10 MG TABLET PO SCH (21:10)
--- NOTE | 2022-09-06 21:55 | NUR ---
HD PERFORMED WITH 1L OUTPUT. TOLERATED WELL. BP 126/58.
[2022-09-07 04:00] VITALS: BP 167/65
--- NOTE | 2022-09-07 04:26 | NUR ---
BP 167/65. Charge nurse and MD notified. Awaiting orders.
[2022-09-07] MEDS: ACETAMINOPHEN ES 500 MG TABLET PO PRN ×2 (04:39→21:08)
--- NOTE | 2022-09-07 05:50 | NUR ---
BP 175/70. CHARGE NURSE AND MD NOTIFIED. AWAITING ORDERS.
[2022-09-07 06:19] LABS: BASOPHILS % (AUTO) 0.2 % (0.0-2.0); EOSINOPHILS % (AUTO) 3.2 % (0.0-6.0); HEMATOCRIT 35 % (33-45); HEMOGLOBIN 11.4 g/dL (11.5-14.8); LYMPHOCYTES # (AUTO) 0.7 K/uL (0.8-4.8); LYMPHOCYTES % (AUTO) 6.3 % (20.0-44.0); MEAN CORPUSCULAR HGB CONC 33 g/dl (31.0-36.0); MEAN CORPUSCULAR VOLUME 99 fL (82-100); MONOCYTES # (AUTO) 1.3 K/uL (0.1-1.30); MONOCYTES % (AUTO) 11.9 % (2.0-12.0); NEUTROPHILS # (AUTO) 8.3 K/uL (1.8-8.9); NEUTROPHILS % (AUTO) 78.4 % (43.0-81.0); PLATELET COUNT (AUTO) 345 K/uL (150-450); RED BLOOD CELL COUNT(AUTO) 3.51 MIL/uL (4.0-5.2); WHITE BLOOD COUNT (AUTO) 10.6 K/uL (4.3-11.0)
[2022-09-07 06:36] LABS: ALANINE AMINOTRANSFERASE 11 U/L (12-78); ALBUMIN 1.8 g/dL (3.4-5.0); ALKALINE PHOSPHATASE 265 U/L (46-116); ASPARTATE AMINOTRANSFERASE 26 U/L (15-37); BILIRUBIN,TOTAL 0.4 mg/dL (0.2-1.0); CALCIUM, SERUM 9.4 mg/dL (8.5-10.1); CARBON DIOXIDE 22 mmol/L (21-32); CHLORIDE 107 mmol/L (98-107); CREATININE 2.1 mg/dL (0.6-1.3); GLUCOSE 119 mg/dL (74-106); MAGNESIUM 2.5 mg/dL (1.8-2.4); PHOSPHORUS 2.7 mg/dL (2.5-4.9); POTASSIUM 4.6 mmol/L (3.5-5.1); SODIUM SERUM 139 mmol/L (136-145); TOTAL PROTEIN, SERUM 7.4 g/dL (6.4-8.2); UREA NITROGEN, BLOOD 29 mg/dL (7-18)
--- NOTE | 2022-09-07 06:41 | NUR ---
PT IN BED, ASLEEP, EASILY AWAKEN. NO S/S OF PAIN/DISCOMFORT. ON RA, NO SOB, LFA #22 AND RAC #18 INTACT, DRY AND PATENT. R CHEST HEMO CATH CLEAN AND DRY. DUE MEDS AND PRN MEDS GIVEN NEEDED AND ORDERED. ALL NEEDS ATTENDED. KEPT PT CLEAN AND DRY AT ALL TIMES. SAFETY MEASURES MAINTAINED. WILL ENDORSE TO AM NURSE.
[2022-09-07] MEDS: hydrALAZINE HCL IV 20 MG VIAL IV PRN ×3 (06:55→23:49)
--- NOTE | 2022-09-07 06:58 | NUR ---
BP 170/80. PRN HYDRALAZINE 10MG IV GIVEN NEEDED AND ORDERED.
--- NOTE | 2022-09-07 07:36 | NUR ---
RN OPENING NOTES PATIENT IN BED AWAKE, Responsive when spoken to in Tagalog. Pt moans but when asked if there is any pain or discomfort no complaints of pain or discomfort at this time. Respirations are equal and unlabored with no SOB. Pt is in RA and tolerating it well. PIV ON RIGHT AC AND LEFT WRIST NOTED PATENT AND INTACT, FLUSHES WELL. RIGHT UPPER CHEST HD CATH DRESSING NOTED C/D/I. HOB elevated to 30-45 degrees. Siderails up at all times. Call light within reach. SAFETY PRECAUTION IN PLACED. PLAN OF CARE CONTINUE.
[2022-09-07] MEDS: NEPRO VAN 237 ML CAN PO SCH ×3 (07:48→17:16)
[2022-09-07] MEDS: LEVOTHYROXINE SODIUM 100 MCG TABLET PO SCH (07:48)
[2022-09-07] MEDS: PANTOPRAZOLE 40 MG TABLET.DR PO SCH (07:48)
[2022-09-07] MEDS: VANCOMYCIN 500 MG in IV NS 0.9% 100 ML IV PRN (08:03)
[2022-09-07] MEDS: APIXABAN 2.5 MG TABLET PO SCH ×2 (08:09→16:23)
[2022-09-07] MEDS: DORZOLAMIDE OPTH 2% 10 ML BOTTLE EACHEYE SCH ×3 (08:09→16:25)
[2022-09-07] MEDS: DAKINS QUARTER STRENGTH (0.125%) 480 ML BOTTLE TOP SCH (08:09)
[2022-09-07] MEDS: THERAHONEY GEL 1.5 OZ TUBE TP SCH (08:09)
[2022-09-07] MEDS: PROSOURCE / PROSTAT (PYXIS) 30 ML UDC PO SCH ×2 (08:10→16:27)
[2022-09-07] MEDS: FOLIC ACID 1 MG TABLET PO SCH (08:14)
[2022-09-07] MEDS: SEVELAMER CARBONATE 800 MG POWD.PACK PO SCH ×3 (08:14→16:29)
[2022-09-07] MEDS: ANASTROZOLE 1 MG TABLET PO SCH (08:15)
[2022-09-07] MEDS: VIT B CMPLX 3/FA/VIT C/BIOTIN 1 TAB TABLET PO SCH (08:15)
--- NOTE | 2022-09-07 10:56 | NUR ---
PER DIALYSIS NURSE EKTA MARTIN, NO HEMODIALYSIS TODAY, WILL RESUME ANAHI.
[2022-09-07] MEDS: CEFEPIME 1 GM in IV D5W 50 ML IV SCH (17:02)
[2022-09-07 18:00] VITALS: BP 169/68
--- NOTE | 2022-09-07 18:45 | NUR ---
PATIENT IS AWAKE, ALERT,ORIENTED X1 (NAME), RESTING COMFORTABLY IN BED, NO SIGNS OF IN DISTRESS, SPO2-96% ROOM AIR, UNLABORED BREATHING, NO COMPLAINT OF PAIN, LEFT AC PERIPHERAL IV LINE PATENT,HD CANCELLED TODAY PER MD, HD SCHEDULED TOMORROW. BED IN LOW POSITION, CALL LIGHT WITHIN REACH. IS AT BEDSIDE.
--- NOTE | 2022-09-07 19:40 | NUR ---
RN OPENING NOTES RECEIVED PT IN BED, AWAKE A/O X1 WITH PERIODS OF CONFUSION, NO S/S OF PAIN/DISCOMFORT NOTED. ON RA, NO SOB, NO ACUTE DISTRESS NOTED. LFA #22 AND RAC #18 INTACT, DRY AND PATENT. R CHEST HEMO CATH CLEAN AND DRY. ALL NEEDS ANTICIPATED AND MET. TURN/REPOS PT Q2H/ NEEDED. KEPT PT CLEAN AND DRY AT ALL TIMES. SAFETY MEASURES IMPLEMENTED: BED LOCKED AND IN LOWEST POSITION. WILL CONTINUE TO MONITOR THROUGHOUT THE SHIFT.
[2022-09-07] MEDS: ATORVASTATIN 10 MG TABLET PO SCH (21:09)
[2022-09-07] MEDS: LATANOPROST EYE DROP 0.005% 2.5 ML BOTTLE EACHEYE SCH (21:13)
[2022-09-08 02:00] VITALS: BP 167/69
--- NOTE | 2022-09-08 05:10 | NUR ---
RN NOTE PT HEMODIALYSIS STARTED AT BEDSIDE WITH MARIO DASH. PT TOLERATING WELL
[2022-09-08 06:18] LABS: BASOPHILS % (AUTO) 0.1 % (0.0-2.0); EOSINOPHILS % (AUTO) 1.3 % (0.0-6.0); HEMATOCRIT 33 % (33-45); HEMOGLOBIN 10.4 g/dL (11.5-14.8); LYMPHOCYTES # (AUTO) 0.7 K/uL (0.8-4.8); LYMPHOCYTES % (AUTO) 5.7 % (20.0-44.0); MEAN CORPUSCULAR HGB CONC 32 g/dl (31.0-36.0); MEAN CORPUSCULAR VOLUME 99 fL (82-100); MONOCYTES # (AUTO) 1.4 K/uL (0.1-1.30); MONOCYTES % (AUTO) 10.8 % (2.0-12.0); NEUTROPHILS # (AUTO) 10.5 K/uL (1.8-8.9); NEUTROPHILS % (AUTO) 82.1 % (43.0-81.0); PLATELET COUNT (AUTO) 382 K/uL (150-450); RED BLOOD CELL COUNT(AUTO) 3.33 MIL/uL (4.0-5.2); WHITE BLOOD COUNT (AUTO) 12.8 K/uL (4.3-11.0)
[2022-09-08 06:43] LABS: ALANINE AMINOTRANSFERASE 19 U/L (12-78); ALKALINE PHOSPHATASE 296 U/L (46-116); ASPARTATE AMINOTRANSFERASE 26 U/L (15-37); BILIRUBIN,TOTAL 0.5 mg/dL (0.2-1.0); CALCIUM, SERUM 9.8 mg/dL (8.5-10.1); CARBON DIOXIDE 21 mmol/L (21-32); CHLORIDE 106 mmol/L (98-107); CREATININE 3.5 mg/dL (0.6-1.3); GLUCOSE 167 mg/dL (74-106); MAGNESIUM 2.7 mg/dL (1.8-2.4); PHOSPHORUS 2.5 mg/dL (2.5-4.9); POTASSIUM 4.9 mmol/L (3.5-5.1); SODIUM SERUM 138 mmol/L (136-145); TOTAL PROTEIN, SERUM 7.7 g/dL (6.4-8.2); UREA NITROGEN, BLOOD 57 mg/dL (7-18)
--- NOTE | 2022-09-08 06:44 | NUR ---
RN CLOSING NOTES PT REMAINS IN BED, ASLEEP WITH ONGOING DIALYSIS AT BEDSIDE, A/O X1 WITH PERIODS OF CONFUSION. ON RA, NO SOB, NO ACUTE DISTRESS NOTED. LFA #22 AND RAC #18 INTACT, DRY AND PATENT. R CHEST HEMO CATH CLEAN AND DRY. ALL NEEDS ANTICIPATED AND MET. TURN/REPOSITION PT Q2H/ NEEDED. KEPT PT CLEAN AND DRY AT ALL TIMES. ALL DUE MEDS GIVEN, KEPT DRY AND CLEAN, SAFETY MEASURES IMPLEMENTED: BED LOCKED AND IN LOWEST POSITION. WILL ENDORSE TO AM SHIFT NURSE FOR CONTINUITY OF CARE.
--- NOTE | 2022-09-08 07:22 | NUR ---
CHIEF INVESTMENT OFFICER OPENING NOTES Received pt awake in bed AOx1 responsive to tagalog only. No complaints of pain or discomfort at this time. Pt is Currently on dialysis and tolerating it well. Respirations are equal and unlabored with no SOB. Pt is currently on room air and tolerating it well. IV access on LFA 22G and RAC 18G SL patent and intact. Pt has a right upper chest HD cath. HOB elevated to 30-45 degrees. Siderails up at all times. Bed locked and at its lowest setting. Call light within reach. Will anticipate needs.
--- NOTE | 2022-09-08 07:25 | NUR ---
HVAC SERVICES PROFESSIONAL NOTES Pt completed HD and tolerated it well. 2L were taken out.
[2022-09-08] MEDS: LEVOTHYROXINE SODIUM 100 MCG TABLET PO SCH (08:46)
[2022-09-08] MEDS: ANASTROZOLE 1 MG TABLET PO SCH (08:46)
[2022-09-08] MEDS: FOLIC ACID 1 MG TABLET PO SCH (08:47)
[2022-09-08] MEDS: VIT B CMPLX 3/FA/VIT C/BIOTIN 1 TAB TABLET PO SCH (08:47)
[2022-09-08] MEDS: SEVELAMER CARBONATE 800 MG POWD.PACK PO SCH ×3 (08:47→17:31)
[2022-09-08] MEDS: DAKINS QUARTER STRENGTH (0.125%) 480 ML BOTTLE TOP SCH (08:47)
[2022-09-08] MEDS: PANTOPRAZOLE 40 MG TABLET.DR PO SCH (08:47)
[2022-09-08] MEDS: PROSOURCE / PROSTAT (PYXIS) 30 ML UDC PO SCH ×2 (08:47→17:00)
[2022-09-08] MEDS: THERAHONEY GEL 1.5 OZ TUBE TP SCH (08:47)
[2022-09-08] MEDS: NEPRO VAN 237 ML CAN PO SCH ×3 (08:48→17:00)
[2022-09-08] MEDS: APIXABAN 2.5 MG TABLET PO SCH ×2 (08:48→17:00)
[2022-09-08] MEDS: DORZOLAMIDE OPTH 2% 10 ML BOTTLE EACHEYE SCH ×3 (08:56→17:30)
[2022-09-08 10:00] VITALS: BP 163/73
--- NOTE | 2022-09-08 11:11 | NUR ---
TRANSPORTATION INSPECTOR NOTES Called Dr. Douglas regarding pt PEG placement surgery and stated that he doesn't have a time scheduled at the moment for the procedure and to have the PT remain NPO in the meantime.
--- NOTE | 2022-09-08 12:34 | NUR ---
VOIP NETWORK TECHNICIAN NOTES Received a new message from Dr. Shah that the PEG placement procedure could happen today and have the pt remain NPO.
[2022-09-08] MEDS: CEFEPIME 1 GM in IV D5W 50 ML IV SCH (17:26)
[2022-09-08 18:00] VITALS: BP 185/81
[2022-09-08] MEDS: hydrALAZINE HCL IV 20 MG VIAL IV PRN (18:30)
--- NOTE | 2022-09-08 18:35 | NUR ---
VISUAL MERCHANDISER CLOSING NOTES Pt is awake in bed AOX1 responsive to tagalog language. No signs of pain or discomfort at this time. Pt is on RA and tolerating it well. IV access on LFA 22G and RAC 18G patent and intact. Pt remains NPO for PEG placement procedure at 1999. HOB elevated to 30-45 degrees. Siderails up at all times. Call light within reach. Will endorse to oncoming nurse.
--- NOTE | 2022-09-08 19:10 | NUR ---
RN opening notes Pt is resting in bed comfortably. Pt is alert and orientedx1. On room air. No SOB. No S/S of distress noted. NPO for PEG placement. LFA# 22 is clean, intact and SL. RAC# 18 i s clean, intact and SL. R chest permacath is intact and clean. Safety precautions is maintianed. bed at low position, brakes locked, side rails upX3, hob elevated and call light is within reach. will continue to monitor.
[2022-09-08 19:15] VITALS: BP 141/61
--- NOTE | 2022-09-08 19:40 | NUR ---
RN notes Pt is going for PEG placement. Pt's at the bedside.
[2022-09-08 21:25] VITALS: BP 158/70
--- NOTE | 2022-09-08 21:25 | NUR ---
RN notes Pt is back from EGD with PEG placement accompanied by MARIO Perry. Pt is alert and awake. VS is stable. No S/S of distress noted. Dr. Douglas ordered to start feeding in am. Pt's is at the bedside. PEG is inplaced, clean and dry and wrapped with abdominal binder. will continue to monitor.
[2022-09-08] MEDS: ATORVASTATIN 10 MG TABLET PO SCH (21:43)
[2022-09-08] MEDS: LATANOPROST EYE DROP 0.005% 2.5 ML BOTTLE EACHEYE SCH (21:44)
[2022-09-09] VITALS: BP 151/77
[2022-09-09 03:50] VITALS: BP 169/72
[2022-09-09] MEDS: hydrALAZINE HCL IV 20 MG VIAL IV PRN ×2 (03:52→15:26)
[2022-09-09 06:24] LABS: ALANINE AMINOTRANSFERASE 16 U/L (12-78); ALBUMIN 2.1 g/dL (3.4-5.0); ALKALINE PHOSPHATASE 241 U/L (46-116); ASPARTATE AMINOTRANSFERASE 23 U/L (15-37); BILIRUBIN,TOTAL 0.7 mg/dL (0.2-1.0); CALCIUM, SERUM 9.9 mg/dL (8.5-10.1); CARBON DIOXIDE 24 mmol/L (21-32); CHLORIDE 104 mmol/L (98-107); GLUCOSE 119 mg/dL (74-106); MAGNESIUM 2.7 mg/dL (1.8-2.4); POTASSIUM 5.2 mmol/L (3.5-5.1); SODIUM SERUM 137 mmol/L (136-145); TOTAL PROTEIN, SERUM 8.1 g/dL (6.4-8.2); UREA NITROGEN, BLOOD 42 mg/dL (7-18)
[2022-09-09 06:26] LABS: BASOPHILS % (AUTO) 0.3 % (0.0-2.0); EOSINOPHILS % (AUTO) 1.4 % (0.0-6.0); HEMATOCRIT 35 % (33-45); HEMOGLOBIN 11.3 g/dL (11.5-14.8); LYMPHOCYTES # (AUTO) 0.8 K/uL (0.8-4.8); LYMPHOCYTES % (AUTO) 8.1 % (20.0-44.0); MEAN CORPUSCULAR HGB CONC 32 g/dl (31.0-36.0); MEAN CORPUSCULAR VOLUME 99 fL (82-100); MONOCYTES % (AUTO) 9.7 % (2.0-12.0); NEUTROPHILS % (AUTO) 80.5 % (43.0-81.0); PLATELET COUNT (AUTO) 364 K/uL (150-450); RED BLOOD CELL COUNT(AUTO) 3.54 MIL/uL (4.0-5.2)
--- NOTE | 2022-09-09 06:30 | NUR ---
RN closing notes Pt is resting in bed comfortably. Pt is alert and orientedx1. On room air. No SOB. No S/S of distress noted. Vs is stable. LFA# 22 is clean, intact and SL. RAC# 18 is clean, intact and SL. R chest permacath is intact and clean. PEG dressing is clean, intact and abd binder is inplaced. Wound care provided as ordered. Kept Pt clean, dry and comfortable. Safety precautions is maintianed. Bed at low position, brakes locked, side rails upX3, hob elevated and call light is within reach. Will endorse to am nurse for SOL.
--- NOTE | 2022-09-09 07:10 | NUR ---
COAL TRAMMER OPENING NOTES Received pt awake in bed AOX2 and tagalog speaking. No complaints of pain or discomfort at this time. Respirations are equal and unlabored with no SOB. Pt is on RA and tolerating it well. GT is patent and intact. IV access on LFA 22G and RAC 18G patent and intact. HOB elevated to 30-45 degrees. Siderails up x2 at all times. Bed at lowest setting and locked. Call light within reach. Will anticipate needs.
[2022-09-09] MEDS: LEVOTHYROXINE SODIUM 100 MCG TABLET PO SCH (07:38)
[2022-09-09] MEDS: PANTOPRAZOLE 40 MG TABLET.DR PO SCH (07:38)
--- NOTE | 2022-09-09 07:50 | NUR ---
PREPRESS OPERATOR NOTES New order to start GTF Nepro at 20cc/hr and increase rate if tolerated well.
[2022-09-09 08:00] VITALS: BP 169/73
[2022-09-09] MEDS ORDERED: NEPRO 1,000 ML BOTTLE GT PRN ×2 (08:00→08:02)
[2022-09-09] MEDS: DORZOLAMIDE OPTH 2% 10 ML BOTTLE EACHEYE SCH ×2 (08:04→12:17)
[2022-09-09] MEDS: SEVELAMER CARBONATE 800 MG POWD.PACK PO SCH ×2 (08:05→12:17)
[2022-09-09] MEDS: VIT B CMPLX 3/FA/VIT C/BIOTIN 1 TAB TABLET PO SCH (08:05)
[2022-09-09] MEDS: ANASTROZOLE 1 MG TABLET PO SCH (08:05)
[2022-09-09] MEDS: FOLIC ACID 1 MG TABLET PO SCH (08:05)
[2022-09-09] MEDS: PROSOURCE / PROSTAT (PYXIS) 30 ML UDC PO SCH (08:06)
[2022-09-09] MEDS: APIXABAN 2.5 MG TABLET PO SCH (08:07)
[2022-09-09] MEDS: THERAHONEY GEL 1.5 OZ TUBE TP SCH (08:08)
[2022-09-09] MEDS: DAKINS QUARTER STRENGTH (0.125%) 480 ML BOTTLE TOP SCH (08:08)
--- NOTE | 2022-09-09 09:39 | NUR ---
POOLROOM TABLE ATTENDANT NOTES Pt is tolerating GTF well. Rate increased to 30cc/hr. Will continue to increase if tolerated by pt. Goal rate is 60cc/hr.
--- NOTE | 2022-09-09 10:33 | NUR ---
SILO TENDER NOTES Wound debridement done by RUSTY Leija. Dressings changed. Pt tolerated it well.
[2022-09-09 12:10] LABS: BAND % (MANUAL) 4 % (0.0-5.0); EOSINOPHILS % (MANUAL) 2 % (0-4); LYMPHOCYTES % (MANUAL) 8 % (16-48); METAMYELOCYTES % 1 % (0-0); MONOCYTES % (MANUAL) 6 % (0-11.0); NEUTROPHILS % (MANUAL) 79 (42-76)
--- NOTE | 2022-09-09 12:22 | NUR ---
PIG IRON LOADER NOTES Pt tolerating GTF well. GTF increased to 35 cc/hr.
[2022-09-09] MEDS ORDERED: MINOXIDIL (2.5MG) 2.5 MG TABLET GT SCH (14:30)
[2022-09-09] MEDS: NIFEdipine (10MG) 10 MG CAPSULE PO SCH ×2 (14:30→15:21)
[2022-09-09] MEDS ORDERED: LOSARTAN POTASSIUM 50 MG TABLET GT SCH (14:30)
[2022-09-09] MEDS: ACETAMINOPHEN 325 MG TABLET PO PRN (15:27)
--- NOTE | 2022-09-09 15:27 | NUR ---
OTR OWNER OPERATOR NOTES Routine Procardia 60mg refused by pt due to the medication being 6 big capusles and she has difficulty swallowing. Asked pharmacy if they had a different type and they stated they did not.
--- NOTE | 2022-09-09 15:34 | NUR ---
patient unable to tolerate 6 pills nefidepine,prn hydralazine given iv r/t sbp 180.
[2022-09-09 16:00] VITALS: BP 142/54
--- NOTE | 2022-09-09 16:35 | NUR ---
IT ENGINEER NOTES Called [facility] and gave report to MARIO Villalobos.
--- NOTE | 2022-09-09 16:58 | NUR ---
DAUGHTER AT BEDSIDE ,REFUSED DISCHARGE PHOTO TAKEN.
--- NOTE | 2022-09-09 17:15 | NUR ---
MARINE SERVICE OPERATOR NOTES Pt got picked up by 2 architectural technician. BP 142/54, HR 83, temp 98 degrees F, O2 96%, RR 16. Transferred from bed to [facility] safely en route to [facility].
== END 2022-09-09 18:15 | DRG 853 ==
LOC: ER 14:46 → TELE1 21:06 → TELE-TD 21:47 → TELE1 09-02 13:32 → MEDSG1 09-03 08:49
PROVIDERS: ADMIT Registered Nurse; ATTEND Nurse Practitioner Acute Care
PROC: 5A1D70Z Performance of Urinary Filtration, Intermittent, Less than 6 Hours Per Day (ICD-10-PCS; 2022-09-02)
PROC: 0JB70ZZ Excision of Back Subcutaneous Tissue and Fascia, Open Approach (ICD-10-PCS; principal; 2022-09-03)
PROC: 0KBP0ZZ Excision of Left Hip Muscle, Open Approach (ICD-10-PCS; 2022-09-03)
PROC: 0KBN0ZZ Excision of Right Hip Muscle, Open Approach (ICD-10-PCS; 2022-09-03)
PROC: 0DH63UZ Insertion of Feeding Device into Stomach, Percutaneous Approach (ICD-10-PCS; 2022-09-08)
PROC: 0KBP0ZZ Excision of Left Hip Muscle, Open Approach (ICD-10-PCS; 2022-09-09)
PROC: 0KBN0ZZ Excision of Right Hip Muscle, Open Approach (ICD-10-PCS; 2022-09-09)
PROC: 0JB70ZZ Excision of Back Subcutaneous Tissue and Fascia, Open Approach (ICD-10-PCS; 2022-09-09)
DX: A41.9 Sepsis, unspecified organism (principal); I21.A1 Myocardial infarction type 2; R65.21 Severe sepsis with septic shock; L89.143 Pressure ulcer of left lower back, stage 3; L89.154 Pressure ulcer of sacral region, stage 4; N18.6 End stage renal disease; J15.9 Unspecified bacterial pneumonia; I50.33 Acute on chronic diastolic (congestive) heart failure; E87.1 Hypo-osmolality and hyponatremia; I13.2 Hypertensive heart and chronic kidney disease with heart failure and with stage 5 chronic kidney disease, or end stage renal disease; E46 Unspecified protein-calorie malnutrition; Z68.1 Body mass index [BMI] 19.9 or less, adult; R64 Cachexia; E03.9 Hypothyroidism, unspecified; D63.1 Anemia in chronic kidney disease; E78.5 Hyperlipidemia, unspecified; I48.91 Unspecified atrial fibrillation; J32.0 Chronic maxillary sinusitis; R13.10 Dysphagia, unspecified; R62.7 Adult failure to thrive; Z86.73 Personal history of transient ischemic attack (TIA), and cerebral infarction without residual deficits; Z99.2 Dependence on renal dialysis; Z20.822 Contact with and (suspected) exposure to COVID-19; F01.50 Vascular dementia, unspecified severity, without behavioral disturbance, psychotic disturbance, mood disturbance, and anxiety; E11.22 Type 2 diabetes mellitus with diabetic chronic kidney disease; K29.70 Gastritis, unspecified, without bleeding; Z74.01 Bed confinement status; E83.9 Disorder of mineral metabolism, unspecified; L89.620 Pressure ulcer of left heel, unstageable; L89.610 Pressure ulcer of right heel, unstageable
CPT/HCPCS: 36415; 43246; 70450-TC; 71045-TC; 80048-TC; 80053-TC; 80076-TC; 80202-TC; 82962-TC; 83605-TC; 83735-TC; 84100-TC; 84439-TC; 84443-TC; 84484-TC; 85025-TC; 85730-TC; 86706; 87040-TC; 87081-TC; 87340; 90935-TC; 92526; 92611-TC; 93307-TC; 97110-TC; 97112-TC; 97530-TC; A6253; A6403; A9563; C9803; G0378; J0360; J0692; J2704; J3370; J3490; J7030; J7040; J7050; J7060